=== PATIENT | male | born 1960 | race Caucasian/White ===

== ENCOUNTER 2022-08-25 02:53 | Inpatient (IN) | payer MEDICAID ==
[~2022-08-25] VITALS: Ht 182.9 cm; Wt 93.2 kg
[2022-08-25 04:34] LABS: BASOPHILS # (AUTO) 0.1 X10'3 (0-0.2); BASOPHILS % (AUTO) 0.7 % (0-1); EOSINOPHILS # (AUTO) 0.1 X10'3 (0-0.9); EOSINOPHILS % (AUTO) 0.9 % (0-6); HEMATOCRIT 37.3 % (42.0-52.0); HEMOGLOBIN 12.5 g/dl (14.0-17.9); LYMPHOCYTES # (AUTO) 1.1 X10'3 (1.1-4.8); LYMPHOCYTES % (AUTO) 10.1 % (21-51); MEAN CORPUSCULAR HEMOGLOBIN 30.8 PG (27.0-31.0); MEAN CORPUSCULAR HGB CONC 33.6 g/dL (33.0-36.5); MEAN CORPUSCULAR VOLUME 91.6 FL (78-98); MEAN PLATELET VOLUME 8.2 FL (7.4-10.4); MONOCYTES # (AUTO) 0.9 X10'3 (0-0.9); MONOCYTES % (AUTO) 8.1 % (2-12); NEUTROPHILS % (AUTO) 80.2 % (42-75); PLATELET COUNT 201 X10'3 (140-440); RED BLOOD COUNT 4.07 X10'6 (4.70-6.10); RED CELL DISTRIBUTION WIDTH 12.6 % (11.5-14.5); WHITE BLOOD COUNT 11.3 X10'3 (4.5-11.0)
[2022-08-25 04:49] LABS: ALANINE AMINOTRANSFERASE 14 U/L (12-78); ALBUMIN 3.6 G/DL (3.4-5.0); ALBUMIN/GLOBULIN RATIO 1.1 (1.1-1.5); ALKALINE PHOSPHATASE 61 IU/L (46-116); ANION GAP 11 (8-16); ASPARTATE AMINO TRANSFERASE 10 U/L (10-37); BILIRUBIN,TOTAL 0.4 MG/DL (0.1-1.0); BLOOD UREA NITROGEN 20 MG/DL (7-18); BUN/CREATININE RATIO 16.5 (10.0-20.0); CALCIUM 8.5 MG/DL (8.5-10.1); CHLORIDE 106 MMOL/L (99-107); CREATININE 1.21 MG/DL (0.60-1.10); GLUCOSE 212 MG/DL (70-104); SODIUM 137 MMOL/L (135-145); TOTAL CARBON DIOXIDE 20.4 MMOL/L (24-32); TOTAL PROTEIN 6.9 G/DL (6.4-8.2); eGFR 61 ML/MIN
[2022-08-25] MEDS ORDERED: morphine 4 MG/ML inj SYRINge IV ONE (05:10)
[2022-08-25] MEDS ORDERED: ondansetron/PF 4mg/2ml inj IV ONE (05:10)
[2022-08-25] MEDS ORDERED: iohexol 300mg/ml 100ml inj. ONE (05:28)
--- NOTE | 2022-08-25 06:47 | NUR ---
MRI screening form faxed at this time.
[2022-08-25] MEDS ORDERED: normal saline 1000ML IV soln IVB ONE (07:25)
[2022-08-25] MEDS ORDERED: acetaminophen 1,000mg/100ml IV 100 ML IV ONE (07:25)
[2022-08-25] MEDS ORDERED: diphenhydrAMINE 50 mg/ml inj IV ONE (09:25)
[2022-08-25] MEDS ORDERED: oxyCODONE/APAP 10/325mg tablet PO ONE (09:25)
[2022-08-25] MEDS ORDERED: metoclopramide 5 mg/ml inj IV ONE (09:25)
[2022-08-25] MEDS ORDERED: LORazepam 2 mg/ml vial IV ONE (10:00)
--- NOTE | 2022-08-25 10:17 | NUR ---
To MRI via wheelchair at this time.
[2022-08-25] MEDS ORDERED: GADOTERATE MEGLUMINE 7.5 MMOL/15 ML VIAL IV ONE (11:58)
[2022-08-25] MEDS ORDERED: aspirin 81mg tab.chew PO ONE (12:00)
[2022-08-25] MEDS ORDERED: potassium Cl 40MEQ/1/2NS 520ml 520 ML IV PRN (14:45)
[2022-08-25] MEDS ORDERED: magnesium Cl slow-release 64mg tablet PO PRN (14:45)
[2022-08-25] MEDS ORDERED: magnesium hydroxide 30ml (MOM) UD suspension PO PRN (14:45)
[2022-08-25] MEDS ORDERED: magnesium 2GM in 50ml NS 50 ML IV PRN (14:45)
[2022-08-25] MEDS ORDERED: potassium Cl 20 mEq SR tablet PO PRN ×2 (14:45)
[2022-08-25] MEDS ORDERED: acetaminophen 325mg tablet PO PRN ×2 (14:45)
[2022-08-25] MEDS ORDERED: ondansetron 4mg rapidly disintigrating tab PO PRN (14:45)
[2022-08-25] MEDS ORDERED: morphine 2 MG/ML inj. syringe IV PRN (14:45)
[2022-08-25] MEDS ORDERED: mag hydrox/Alum hydrox/simeth 30ml oral suspension PO PRN (14:45)
[2022-08-25] MEDS ORDERED: acetaminophen 650mg rectal suppository RC PRN (14:45)
[2022-08-25] MEDS ORDERED: ondansetron/PF 4mg/2ml inj IV PRN (14:45)
[2022-08-25] MEDS ORDERED: PERFLUTREN PROTEIN-A MICROSPHR (Optison) 0.22 MG/ML 3ML VIAL IV ONE (14:45)
[2022-08-25] MEDS ORDERED: magnesium 4gm in 100ml NS 100 ML IV PRN (14:45)
[2022-08-25 15:25] LABS: CHOL/HDL RATIO 3.6 (0.00-4.99); CHOLESTEROL 120 MG/DL (0-200); HDL CHOLESTEROL 33 MG/DL (35-60); LDL CHOLESTEROL 70 MG/DL (50-100); MAGNESIUM 2.2 MG/DL (1.5-2.4); TRIGLYCERIDES 107 MG/DL (20-135)
[2022-08-25 16:01] LABS: HEMOGLOBIN A1C 9.4 % (4.5-6.2)
[2022-08-25] MEDS ORDERED: SPIR25TA5 PO (16:49)
[2022-08-25] MEDS ORDERED: ATOR-2 PO (16:49)
[2022-08-25] MEDS ORDERED: SACU1TAB7 PO (16:49)
[2022-08-25] MEDS ORDERED: ISOS30TA84 PO (16:49)
[2022-08-25] MEDS ORDERED: FURO20TA4 PO (16:49)
[2022-08-25] MEDS ORDERED: CLOP75TA34 PO (16:49)
[2022-08-25] MEDS ORDERED: CARV3.123 PO (16:49)
[2022-08-25] MEDS ORDERED: NITR0.4T48 PO (16:49)
[2022-08-25] MEDS: normal saline 1000ml 1,000 ML IV SCH ×2 (18:36→23:33)
[2022-08-25] MEDS: morphine 2 MG/ML inj. syringe IV PRN (18:55)
[2022-08-25 20:00] VITALS: BP 129/79
[2022-08-25] MEDS: K and/or MAG REPLACEMENT MC SCH (20:00)
[2022-08-25] MEDS ORDERED: temazepam 15mg capsule PO PRN (21:00)
[2022-08-25] MEDS: docusate sod 100mg capsule PO SCH (21:33)
[2022-08-25] MEDS: HYDROcodone/acetaminophen 5mg/325mg tablet PO PRN (21:54)
[2022-08-25 22:00] VITALS: BP 128/73
[2022-08-26] MEDS: morphine 2 MG/ML inj. syringe IV PRN ×2 (01:42→06:06)
[2022-08-26 02:00] VITALS: BP 115/61
[2022-08-26] MEDS: normal saline 1000ml 1,000 ML IV SCH (02:29)
[2022-08-26] MEDS ORDERED: dextrose 50%-water 50ml dispensing syringe IV PRN ×2 (03:50)
[2022-08-26] MEDS ORDERED: glucagon, human recombinant 1mg kit SUBCUT PRN (03:50)
[2022-08-26] MEDS ORDERED: insulin Lispro (HumaLOG) vial - multi-dose SQ SCH (03:50)
[2022-08-26] MEDS ORDERED: DEXTROSE 15 GM of carb/4 tabs (each vial/BOTTLE has 4 tablets) PO PRN ×2 (03:50)
--- NOTE | 2022-08-26 06:20 | NUR ---
Patient in room [facility] 4022. I have received report from Karma Piedra RN and had the opportunity to ask questions and assume patient care.
[2022-08-26 06:43] LABS: BASOPHILS # (AUTO) 0.1 X10'3 (0-0.2); BASOPHILS % (AUTO) 0.8 % (0-1); EOSINOPHILS # (AUTO) 0.1 X10'3 (0-0.9); EOSINOPHILS % (AUTO) 1.4 % (0-6); HEMOGLOBIN 11.7 g/dl (14.0-17.9); LYMPHOCYTES # (AUTO) 1.6 X10'3 (1.1-4.8); MEAN CORPUSCULAR HEMOGLOBIN 31.3 PG (27.0-31.0); MEAN CORPUSCULAR HGB CONC 34.3 g/dL (33.0-36.5); MEAN PLATELET VOLUME 8.3 FL (7.4-10.4); MONOCYTES # (AUTO) 0.8 X10'3 (0-0.9); MONOCYTES % (AUTO) 10.4 % (2-12); NEUTROPHILS # (AUTO) 4.9 X10'3 (1.8-7.7); NEUTROPHILS % (AUTO) 65.4 % (42-75); PLATELET COUNT 196 X10'3 (140-440); RED BLOOD COUNT 3.73 X10'6 (4.70-6.10); RED CELL DISTRIBUTION WIDTH 12.5 % (11.5-14.5); WHITE BLOOD COUNT 7.4 X10'3 (4.5-11.0)
[2022-08-26 06:45] LABS: ALANINE AMINOTRANSFERASE 15 U/L (12-78); ALKALINE PHOSPHATASE 55 IU/L (46-116); ANION GAP 8 (8-16); ASPARTATE AMINO TRANSFERASE 12 U/L (10-37); BILIRUBIN,TOTAL 0.4 MG/DL (0.1-1.0); BLOOD UREA NITROGEN 12 MG/DL (7-18); BUN/CREATININE RATIO 12.2 (10.0-20.0); CHLORIDE 105 MMOL/L (99-107); CREATININE 0.98 MG/DL (0.60-1.10); GLUCOSE 145 MG/DL (70-104); MAGNESIUM 1.9 MG/DL (1.5-2.4); POTASSIUM 3.5 MMOL/L (3.5-5.1); SODIUM 136 MMOL/L (135-145); TOTAL CARBON DIOXIDE 22.8 MMOL/L (24-32); TOTAL PROTEIN 6.1 G/DL (6.4-8.2); eGFR 78 ML/MIN
[2022-08-26] MEDS ORDERED: clopidogrel 75mg tablet PO SCH (08:00)
[2022-08-26] MEDS: K and/or MAG REPLACEMENT MC SCH (08:00)
[2022-08-26] MEDS: docusate sod 100mg capsule PO SCH (08:04)
[2022-08-26] MEDS ORDERED: aspirin 81mg tab.chew PO SCH (08:30)
[2022-08-26] MEDS ORDERED: ibuprofen tablet 400 MG TABLET PO ONE (10:35)
[2022-08-26] MEDS: HYDROcodone/acetaminophen 5mg/325mg tablet PO PRN (10:35)
[2022-08-26] MEDS ORDERED: ASPI81TA53 PO (11:26)
[2022-08-26] MEDS ORDERED: HYDR-3965 PO (11:26)
--- NOTE | 2022-08-26 12:36 | NUR ---
[employer] documentation: I have reviewed and agree with all interventions, assessments performed and documented by Michael MENDEZ. No new findings noted.
--- NOTE | 2022-08-26 13:06 | NUR ---
Pt stable for discharge. VSS. Patient left with all personal belongings. Meds faxed to pharmacy. IV D/C. Patient was wheeled out with the assistance of 1 staff member with family present. Patient left with family in private vehicle.
--- NOTE | 2022-08-26 13:48 | NUR ---
DM Consult: Pt hx T2DM A1C 9.4% though no home DM meds and now discharged per EMR. Written DM diet ed w/ RD contact information mailed to pt home address provided in EMR. Addendum: 08/26/22 at [address] Amended: Links added.
[2022-08-26] MEDS ORDERED: carVEDilol 3.125mg tablet PO SCH (17:30)
[2022-08-26] MEDS ORDERED: sacubitril/valsartan 49mg-51mg tablet PO SCH (20:00)
[2022-08-26] MEDS ORDERED: insulin glargine (Lantus) pen - multi-dose SQ SCH (21:00)
[2022-08-26] MEDS ORDERED: atorvastatin 20mg tablet PO SCH (21:00)
[2022-08-27] MEDS ORDERED: spironolactone 25 MG tablet PO SCH (08:00)
[2022-08-27] MEDS ORDERED: furosemide 20MG tablet PO SCH (08:00)
[2022-08-27] MEDS ORDERED: isosorbide mononitrate 30mg tab.SR.24H PO SCH (08:00)
[2022-08-27] MEDS ORDERED: clopidogrel 75mg tablet PO SCH (08:00)
== END 2022-08-26 12:50 | disposition home or self-care (01) | DRG 45 ==
LOC: ER 02:54 → ED HOLD 14:51 → ORTHO 4S 20:15
PROVIDERS: ADMIT Family Medicine; ATTEND Family Medicine
PROC: BW281ZZ Computerized Tomography (CT Scan) of Head using Low Osmolar Contrast (ICD-10-PCS; principal; 2022-08-25)
PROC: B3251ZZ Computerized Tomography (CT Scan) of Bilateral Common Carotid Arteries using Low Osmolar Contrast (ICD-10-PCS; 2022-08-25)
PROC: B32G1ZZ Computerized Tomography (CT Scan) of Bilateral Vertebral Arteries using Low Osmolar Contrast (ICD-10-PCS; 2022-08-25)
PROC: B32R1ZZ Computerized Tomography (CT Scan) of Intracranial Arteries using Low Osmolar Contrast (ICD-10-PCS; 2022-08-25)
PROC: B3281ZZ Computerized Tomography (CT Scan) of Bilateral Internal Carotid Arteries using Low Osmolar Contrast (ICD-10-PCS; 2022-08-25)
DX: I63.532 Cerebral infarction due to unspecified occlusion or stenosis of left posterior cerebral artery (principal); E11.22 Type 2 diabetes mellitus with diabetic chronic kidney disease; I50.22 Chronic systolic (congestive) heart failure; Z20.822 Contact with and (suspected) exposure to COVID-19; E78.5 Hyperlipidemia, unspecified; N18.9 Chronic kidney disease, unspecified; R29.702 NIHSS score 2; K21.9 Gastro-esophageal reflux disease without esophagitis; G47.33 Obstructive sleep apnea (adult) (pediatric); I25.5 Ischemic cardiomyopathy; I25.10 Atherosclerotic heart disease of native coronary artery without angina pectoris; I25.2 Old myocardial infarction; Z95.1 Presence of aortocoronary bypass graft; Z95.5 Presence of coronary angioplasty implant and graft; Z79.899 Other long term (current) drug therapy
CPT/HCPCS: 36415; 70470; 70496; 70498; 70553; 80053; 80061; 82948; 83036; 83735; 84443; 85025; 85651; 87081; 87811; 92508; 92616; 93005; 93306; 96365; 96375; 97116; 97161; 97530; 99285; A9575; G0378; J0131; J1200; J1815; J2060; J2270; J2405; J2765; J3490; J7030; Q9967